=== PATIENT | female | born 1965 | race Asian ===

== ENCOUNTER → 2017-03-22 | Outpatient (CLI) | payer OTHER ==
--- NOTE | 2017-03-27 09:29 | MM ---
Reason for exam: screening (asymptomatic). Last mammogram was performed 1 year and 2 months ago. Physical Findings: A clinical breast exam by your physician is recommended on an annual basis and results should be correlated with mammographic findings. MG 3D Screening Mammo W/Cad Bilateral CC and MLO view(s) were taken. Prior study comparison: January 15, 2016, mammogram, performed at [facility]. December 30, 2014, mammogram, performed at [facility]. The breast tissue is heterogeneously dense. This may lower the sensitivity of mammography. No significant changes when compared with prior studies. ASSESSMENT: Benign, BI-RAD 2 RECOMMENDATION: Routine screening mammogram of both breasts in 1 year.
== END | disposition home or self-care (01) ==
LOC: RADMAMWWP 16:04
PROVIDERS: ATTEND Obstetrics & Gynecology
DX: Z12.31 Encounter for screening mammogram for malignant neoplasm of breast (principal)
CPT/HCPCS: 77063; G0202

== ENCOUNTER 2019-01-09 19:13 | Emergency (ER) | payer OTHER ==
[2019-01-09 19:22] VITALS: BP 98/53; PULSE 81; RESP 18; TEMP 97.5
[2019-01-09] MEDS ORDERED: AMOXIC-POT CLAV 875-125MG 1 EACH TAB PO STA (19:24)
[2019-01-09] MEDS ORDERED: DIPH,PERTUS(ACELL)TETVAC-LF 0.5 ML VIAL IM ONE (19:25)
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
== END 2019-01-09 20:40 | disposition home or self-care (01) ==
LOC: EC 19:13
DX: S60.372A Other superficial bite of left thumb, initial encounter (principal); Z23 Encounter for immunization; W50.3XXA Accidental bite by another person, initial encounter; Y92.89 Other specified places as the place of occurrence of the external cause; Y99.0 Civilian activity done for income or pay
CPT/HCPCS: 90471; 90715; 99283

== ENCOUNTER → 2019-05-01 | Outpatient (CLI) | payer OTHER ==
--- NOTE | 2019-05-01 17:30 | CT ---
EXAMINATION TYPE: CT abdomen pelvis w con DATE OF EXAM: 05/01/2019 COMPARISON: NONE HISTORY: 53-year-old female Ventral hernia without obstruction. TECHNIQUE: Contiguous axial scanning of the abdomen and pelvis following administration of 100 ml Iso driss 300 IV contrast. Delayed images through the kidneys and coronal/sagittal reconstructions perform ed. CT DLP: 351.2 mGycm Automated exposure control for dose reduction was used. FINDINGS: Heart normal size without pericardial effusion. Lung bases clear without pleural effusion. No focal liver lesion or biliary ductal dilatation. Portal venous system is patent. Gallbladder, adrenal glands, kidneys, spleen, and pancreas appear within normal limits. No dilated small bowel, free fluid, or free air. Normal appendix. Moderate stool burden. No pericolonic inflammatory change. Redundant sigmoid colon. There is a staple line at the rectosigmoid junction compatible with prior resection and re-anastomosi s. No mesenteric or retroperitoneal lymphadenopathy identified. There is a moderate sized omental fat and vessel containing supraumbilical hernia measuring 3.9 cm wi de. The abdominal wall defect measures 1.1 cm wide. Tiny fatty umbilical hernia as well. Bladder is urine distended. Uterus is tilted towards the right. Left ovary is visualized. Right ovary not clearly delineated from adjacent bowel loops. No abnormal fluid collection in the pelvis. Bones: Facet arthropathy lower lumbar spine. IMPRESSION: 1. MODERATE SIZED OMENTAL FAT AND VESSELS CONTAINING SUPRAUMBILICAL MIDLINE HERNIA MEASURING 3.9 CM W TITUS. THE ABDOMINAL WALL DEFECT MEASURES 1.1 CM WIDE. 2. ADDITIONAL TINY FATTY UMBILICAL HERNIA WELL. 3. MODERATE STOOL BURDEN. PRIOR RESECTION AND REANASTOMOSIS AT THE RECTOSIGMOID JUNCTION.
== END | disposition home or self-care (01) ==
LOC: RADCTMAIN 13:46
PROVIDERS: ATTEND Surgery
DX: K42.9 Umbilical hernia without obstruction or gangrene (principal); K66.8 Other specified disorders of peritoneum
CPT/HCPCS: 74177; Q9967

== ENCOUNTER → 2020-04-05 | Outpatient (CLI) | payer OTHER ==
[2020-04-05 10:23] LABS: Basophils # (A) 0.1 k/uL (0-0.2); Basophils % (A) 1 %; Eosinophils # (A) 0.1 k/uL (0-0.7); Eosinophils % (A) 2 %; HCT 47.5 % (34.0-46.0); HGB 14.8 gm/dL (11.4-16.0); Lymphocytes # (A) 2.4 k/uL (1.0-4.8); Lymphocytes % (A) 39 %; MCH 29.5 pg (25.0-35.0); MCHC 31.1 g/dL (31.0-37.0); MCV 94.9 fL (80.0-100.0); Mean Platelet Volume 8.2; Monocytes # (A) 0.3 k/uL (0-1.0); Monocytes % (A) 5 %; Neutrophils # (A) 3.2 k/uL (1.3-7.7); Neutrophils % (A) 51 %; Platelet Count 205 k/uL (150-450); RDW 12.8 % (11.5-15.5); WBC 6.3 k/uL (3.8-10.6)
== END | disposition home or self-care (01) ==
LOC: LABPAT 08:29
PROVIDERS: ATTEND Surgery
DX: Z01.818 Encounter for other preprocedural examination (principal); K43.2 Incisional hernia without obstruction or gangrene; K42.0 Umbilical hernia with obstruction, without gangrene
CPT/HCPCS: 36415; 85025

== ENCOUNTER → 2020-04-09 | Outpatient (CLI) | payer OTHER | END | disposition home or self-care (01) | LOC: LABWHC1 10:31 | PROVIDERS: ATTEND Surgery | DX: Z11.59 Encounter for screening for other viral diseases (principal) ==

== ENCOUNTER 2020-04-12 09:44 | Day surgery (SDC) | payer OTHER ==
[2020-04-09 09:20] VITALS: BMI 22.8
[~2020-04-12 09:44] MED LIST: HEPARIN SODIUM,PORCINE 5,000 UNIT/ML 1 ML VIAL SQ ONE; LACTATED RINGERS 1,000 ML IV SCH; LIDOCAINE 1% (10MG/ML) FOR IV START INTRADERMA PRN; ONDANSETRON 4 MG/2 ML VIAL IVP ONE; SCOPOLAMINE 1.5MG/72HR PATCH TRANSDERM ONE
[2020-04-12] MEDS ORDERED: DEXAMETHASONE SOD PHOS (MDV) 100 MG/10 ML VIAL IVP ONE (10:20)
[2020-04-12] MEDS ORDERED: MIDAZOLAM 2 MG/2 ML VIAL IVP ONE ×2 (10:20→10:49)
[2020-04-12 10:26] LABS: Glucose,Whole Blood 94 mg/dL (75-99)
[2020-04-12] MEDS ORDERED: ACETAMINOPHEN TAB 500 MG TAB PO ONE (11:36)
[2020-04-12] MEDS ORDERED: MIDAZOLAM 2 MG/2 ML VIAL ONE (11:48)
[2020-04-12] MEDS ORDERED: PHENYLEPHRINE-0.9% NACL SYG 1 MG/10 ML SYRINGE ONE (11:48)
[2020-04-12] MEDS ORDERED: NEOSTIGMINE 1 MG/ML 10 ML VIAL ONE (11:48)
[2020-04-12] MEDS ORDERED: ROCURONIUM BROMIDE 10 MG/ML 5 ML VIAL IV ONE (11:48)
[2020-04-12] MEDS ORDERED: SUCCINYLCHOLINE CHLORIDE 100 MG/5 ML SYR IV ONE (11:48)
[2020-04-12] MEDS ORDERED: LIDOCAINE 1% INJ 10MG/ML (20 ML MDV) ONE (11:48)
[2020-04-12] MEDS ORDERED: fentaNYL (PF) 50 MCG/ML 2 ML AMP ONE (11:48)
[2020-04-12] MEDS ORDERED: GLYCOPYRROLATE 0.2 MG/ML 2 ML VIAL ONE (11:48)
[2020-04-12] MEDS ORDERED: PROPOFOL 10 MG/ML 20 ML VIAL IV ONE (11:48)
[2020-04-12] MEDS ORDERED: KETOROLAC 30 MG/ML 1 ML VIAL ONE (11:48)
[2020-04-12] MEDS ORDERED: BUPIVACAIN-EPI 0.25%-1:200,000 30 ML VIAL SQ ONE (11:51)
[2020-04-12] MEDS ORDERED: HYDROcodone/APAP 5-325MG 1 EACH TAB PO PRN (12:57)
[2020-04-12] MEDS ORDERED: NALOXONE 0.4 MG/ML 1 ML VIAL IV PRN (12:57)
--- NOTE | 2020-04-12 13:02 | P.OP ---
Date of Procedure: 04/12/20 Procedure(s) Performed: PREOPERATIVE DIAGNOSIS: Reducible ventral and umbilical hernia POSTOPERATIVE DIAGNOSIS: Same PROCEDURE: Umbilical and ventral hernia repair with mesh SURGEON: Aleksandra EBL: Minimal ANESTHESIA: Gen. COMPLICATIONS: None OPERATIVE PROCEDURE: Patient placed on the operating table in the supine position. Abdomen was prepped and draped in usual sterile fashion. A vertical incision was then made superior to the umbilicus. Dissection through the subcutaneous tissues took place using electrocautery. The patient's ventral hernia was noted. This was larger than expected with a diameter of approximately 4.5 cm. The defect in the fascia thankfully was only 1.5-2 cm in size. The fascia surrounding that was carefully dissected. The umbilical hernia was then encountered with a defect measuring 1 cm. These 2 fascial defects were connected to one another by incising the fascia between the 2 vertically. We now had a fascial defect measuring 5 x 2 cm. The 8 cm ventral ex mesh was placed in the preperitoneal space and sutured to the fascia using trans-fascial 0 Ethibond sutures. Following that the midline fascia was reapproximated using interrupted 0 Ethibond mattress sutures. The subcutaneous tissues were closed using 20 and 3-0 Vicryl sutures. The skin was closed using a running 4-0 Monocryl suture. Skin glue and sterile dressings were applied. DISPOSITION: Stable to recovery room
[2020-04-12 13:21] VITALS: TEMP 96.8
[2020-04-12] MEDS: HYDROmorphone 0.5 MG/0.5 ML SYRINGE IVP PRN ×2 (13:26→13:31)
[2020-04-12] MEDS ORDERED: LACTATED RINGERS 1,000 ML IV ONE (13:32)
[2020-04-12] MEDS ORDERED: diphenhydrAMINE 50 MG/ML 1 ML VIAL IVP ONE (13:35)
[2020-04-12] MEDS ORDERED: HYDROcodone/APAP 5-325MG 1 EACH TAB PO ONE (14:20)
[2020-04-12] MEDS ORDERED: ONDANSETRON 4 MG/2 ML VIAL IVP ONE (16:50)
[2020-04-12 16:59] VITALS: RESP 18
[2020-04-12 17:45] VITALS: BP 110/72; PULSE 92
== END 2020-04-12 17:46 | disposition home or self-care (01) ==
LOC: OR 09:44
PROVIDERS: ATTEND Surgery
DX: K43.9 Ventral hernia without obstruction or gangrene (principal); K42.9 Umbilical hernia without obstruction or gangrene; Z98.890 Other specified postprocedural states
CPT/HCPCS: 49585; 49560; 49568; 88302; C1781; J2250; J1200; J1644; J2710; J0690; J2405; J2001; J3010; J1885; J1100; J2370; J0330; J2704; J1170

== ENCOUNTER 2020-09-12 18:23 | Emergency (ER) | payer OTHER ==
[2020-09-12 18:35] VITALS: BP 111/61; PULSE 73; RESP 18; TEMP 97.7
--- NOTE | 2020-09-12 21:06 | ED ---
General Adult HPI - General Chief complaint: Recheck/Abnormal Lab/Rx Stated complaint: Wants COVID test Time Seen by Provider: 09/12/20 20:05 Source: patient, RN notes reviewed, old records reviewed Mode of arrival: ambulatory Limitations: no limitations - History of Present Illness Initial comments: 54-year-old female patient to ED. She reports a coworker at work tested positive for COVID and she wants to be tested. She reports some generalized myalgias. Denies any oyher acute complaints. denies chest pain, sob. Systemic: Pt denies fatigue, fever/chills, rash. Pt denies weakness, night sweats, weight loss. Neuro: Pt denies headache, visual disturbances, syncope or pre-syncope. HEENT: Pt denies ocular discharge or irritation, otalgia, rhinorrhea, pharyngitis or notable lymphadenopathy. Cardiopulmonary: Pt denies chest pain, SOB, heart palpitations, dyspnea on exertion. Abdominal/GI: Pt denies abdominal pain, n/v/d. : Pt denies dysuria, burning w/ urination, frequency/urgency. Denies new onset urinary or bowel incontinence. MSK: Pt denies loss of strength or function in extremities. Neuro: Pt denies new onset weakness, paresthesias. - Related Data Previous Rx's Medication Instructions Recorded oxyCODONE HCL [OxyIR] 5 mg PO Q6H PRN 3 Days #6 tab 04/12/20 Allergies Allergy/AdvReac Type Severity Reaction Status Date / Time No Known Allergies Allergy Verified 09/12/20 18:35 Review of Systems ROS Statement: Those systems with pertinent positive or pertinent negative responses have been documented in the HPI. ROS Other: All systems not noted in ROS Statement are negative. Past Medical History Past Medical History: No Reported History Additional Past Medical History / Comment(s): HYPOGLYCEMIA , BLEEDING ULCER YEARS AGO History of Any Multi-Drug Resistant Organisms: None Reported Past Surgical History: Section, Hernia Repair, Hysterectomy Additional Past Surgical History / Comment(s): fibroid removal, 3 hemorrhoid , 2 bunionectomy Past Anesthesia/Blood Transfusion Reactions: Previous Problems w/ Anesthesia Additional Past Anesthesia/Blood Transfusion Reaction / Comment(s): "PATIENT STATES SHE IS VERY DIZZY AFTER SURGERY" Past Psychological History: No Psychological Hx Reported Smoking Status: Never smoker Past Alcohol Use History: Occasional Past Drug Use History: None Reported - Past Family History Mother Family Medical History: Unable to Obtain Additional Family Medical History / Comment(s): HISTORY NOT KNOWN - ADOPTED General Exam - General Exam Comments Initial Comments: Constitutional: NAD, AOX3, Pt has pleasant affect. HEENT: NC/AT, trachea midline, neck supple, no lymphadenopathy. Posterior pharynx non erythematous, without exudates. External ears appear normal, without discharge. Mucous membranes moist. Eyes PERRLA, EOM intact. There is no scleral icterus. No pallor noted. Cardiopulmonary: RRR, no murmurs, rubs or gallops, no JVD noted. Lungs CTAB in anterior and posterior marin. No peripheral edema. Abdominal exam: Abdomen soft and non-distended. Abdomen non-tender to palpation in all 4 quadrants. Bowel sounds active in LLQ. No hepatosplenomegaly. No ecchymosis Neuro: CN II-XII grossly intact. No nuchal rigidity. No raccon eyes, no bundy sign, no hemotympanum. No cervical spinal tenderness. MSK: Full active ROM in upper and lower extremities, 5/5 stregnth. Limitations: no limitations Course Vital Signs 09/12/20 18:32 Temperature 97.7 F Pulse Rate 73 Respiratory 18 Rate Blood Pressure 111/61 O2 Sat by Pulse 98 Oximetry Medical Decision Making - Medical Decision Making 54-year-old female patient to ED for Covid test. Denies any other complaints. Declines any further workup with exception of Covid test. This was negative. Patient discharged to follow up with primary care provider, return to ED with any worsening symptoms. Case discussed with Dr. Ac. - Lab Data Lab Results 09/12/20 Range/Units 20:18 Coronavirus (PCR) Not Detected (Not Detectd) Disposition Clinical Impression: Exposure to COVID-19 virus Disposition: HOME SELF-CARE Condition: Stable Instructions (If sedation given, give patient instructions): Upper Respiratory Infection (ED) Additional Instructions: Follow up with PCP tomorrow. Self quarantine until symptoms resolve. Return to ED with any worsening symptoms. Is patient prescribed a controlled substance at d/c from ED?: No Referrals: Noble Martínez MD [Primary Care Provider] - 1-2 days
== END 2020-09-12 21:24 | disposition home or self-care (01) ==
LOC: EC 18:23
DX: Z03.818 Encounter for observation for suspected exposure to other biological agents ruled out (principal); Z20.828 Contact with and (suspected) exposure to other viral communicable diseases
CPT/HCPCS: 87635; 99284

== ENCOUNTER → 2024-03-12 | Outpatient (CLI) | payer OTHER ==
--- NOTE | 2024-03-12 17:48 | XR ---
EXAMINATION TYPE: XR knee complete bilateral DATE OF EXAM: 03/12/2024 5:40 PM CLINICAL INDICATION:Female, 58 years old with history of S60.229A,S39.012A, S80.00; [facility] COMPARISON: None. TECHNIQUE: XR knee complete bilateral; examined in Frontal, lateral and oblique projections. FINDINGS: No evidence of any acute osseous pathology, soft tissue swelling, or joint effusion is no aroldo. Minimal osteophyte formation involving the femoral condyles, tibial plateau and patella. Mild malgorzata int space narrowing. IMPRESSION: 1. No acute osseous pathology. 2. Mild tricompartmental osteoarthritic changes.
--- NOTE | 2024-03-12 17:48 | XR ---
EXAMINATION TYPE: XR hand complete RT DATE OF EXAM: 03/12/2024 5:40 PM CLINICAL INDICATION:Female, 58 years old with history of S60.229A,S39.012A, S80.00; [facility] COMPARISON: None TECHNIQUE: XR hand complete RT Frontal, lateral and oblique views were obtained. FINDINGS: Normal alignment of the visualized joints. No acute osseous pathology is identified. No e vidence of soft tissue swelling. There is hyperflexion of the third digit at the proximal interphalan geal joint. IMPRESSION: 1. No acute osseous pathology. 2. Hyperflexion of the third digit proximal interphalangeal joint.
--- NOTE | 2024-03-12 17:50 | XR ---
EXAMINATION TYPE: XR lumbar spine 2 or 3V DATE OF EXAM: 03/12/2024 5:40 PM CLINICAL INDICATION:Female, 58 years old with history of S60.229A,S39.012A, S80.00; [facility] COMPARISON: None TECHNIQUE: XR lumbar spine 2 or 3V - Frontal, lateral and coned in L5-S1 lateral views of the spine. FINDINGS: No evidence of any acute osseous pathology. No evidence of loss of vertebral body height i s seen. There is normal alignment of the lumbar vertebral bodies. Mild scattered disc space narrowing . Multilevel marginal osteophyte formation throughout the visualized spine. There is facet joint arth ropathy throughout the spine. Scattered at least mild neural foraminal stenosis. IMPRESSION: 1. No acute fracture. 2. Mild multilevel disc degeneration.
== END | disposition home or self-care (01) ==
LOC: RADXRMAIN 17:09
PROVIDERS: ATTEND Emergency Medicine
DX: S39.012A Strain of muscle, fascia and tendon of lower back, initial encounter (principal); S60.229A Contusion of unspecified hand, initial encounter; M51.36 Other intervertebral disc degeneration, lumbar region; M17.0 Bilateral primary osteoarthritis of knee
CPT/HCPCS: 72100

== ENCOUNTER → 2024-03-18 | Outpatient (CLI) | payer OTHER ==
--- NOTE | 2024-03-18 17:40 | XR ---
EXAMINATION TYPE: XR humerus LT DATE OF EXAM: 03/18/2024 COMPARISON: NONE HISTORY: 58-year-old female pain in posterior aspect of the left upper arm. S40.022D CONTUSION OF LEF T UPPER ARM, SUBSEQUENT E TECHNIQUE: 2 views FINDINGS: Elbow and shoulder articulations are grossly intact. Unable to adequately assess for elbow joint effu daniel due to positioning on the lateral view. No peristalsis or osteolysis. No acute humeral shaft fra cture seen. IMPRESSION: No acute fracture seen. Unable to assess for elbow joint effusion due to positioning on the lateral v iew. If localizing pain near, dedicated views can be considered.
== END | disposition home or self-care (01) ==
LOC: RADXRMAIN 16:39
PROVIDERS: ATTEND Emergency Medicine
DX: S40.022D Contusion of left upper arm, subsequent encounter (principal)

== ENCOUNTER → 2024-03-24 | Outpatient (CLI) | payer OTHER ==
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
== END | disposition home or self-care (01) ==
LOC: RADUSWWP 16:51
PROVIDERS: ATTEND Emergency Medicine
DX: M79.661 Pain in right lower leg (principal); M79.662 Pain in left lower leg; S80.00XD Contusion of unspecified knee, subsequent encounter; W03.XXXD Other fall on same level due to collision with another person, subsequent encounter
CPT/HCPCS: 93970